=== PATIENT | female | born 1955 | race Caucasian/White ===

== ENCOUNTER → 2017-11-26 | Emergency (ER) | payer OTHER ==
[~2017-11-26] VITALS: Ht 154.9 cm; Wt 68.9 kg
[~2017-11-26] MED LIST: COZAAR25 MG
== END | disposition home or self-care (01) ==
LOC: ER 19:52
DX: R60.0 Localized edema (principal)

== ENCOUNTER → 2018-06-06 | Emergency (ER) | payer OTHER ==
[~2018-06-06] VITALS: Ht 154.9 cm; Wt 68.0 kg
== END | disposition home or self-care (01) ==
LOC: ER 23:44
DX: R42 Dizziness and giddiness (principal); F06.4 Anxiety disorder due to known physiological condition

== ENCOUNTER 2018-10-16 19:10 | Emergency (ER) | payer OTHER ==
[~2018-10-16] VITALS: Ht 162.6 cm; Wt 74.8 kg
== END 2018-10-16 21:19 | disposition home or self-care (01) ==
LOC: ER 19:10
DX: D17.24 Benign lipomatous neoplasm of skin and subcutaneous tissue of left leg (principal)

== ENCOUNTER 2018-10-17 12:17 | Emergency (ER) | payer OTHER ==
[~2018-10-17] VITALS: Ht 154.9 cm; Wt 70.3 kg
== END 2018-10-17 16:24 | disposition home or self-care (01) ==
LOC: ER 12:17
DX: M79.605 Pain in left leg (principal)

== ENCOUNTER 2019-04-04 19:02 | Emergency (ER) | payer OTHER ==
[~2019-04-04] VITALS: Ht 154.9 cm; Wt 69.4 kg
[2019-04-04] MEDS ORDERED: COZAAR25 MG (19:19)
[2019-04-04] MEDS ORDERED: ZOCOR20 MG (19:20)
== END 2019-04-04 23:15 | disposition home or self-care (01) ==
LOC: ER 19:02
DX: L03.031 Cellulitis of right toe (principal)